=== PATIENT | male | born 1965 | race Asian ===

== ENCOUNTER 2016-11-11 14:47 | Inpatient (IN) | payer MEDICAID ==
[~2016-11-11] VITALS: Ht 180.3 cm; Wt 72.6 kg
[2016-11-11 14:55] VITALS: BP 104/64
--- NOTE | 2016-11-11 15:04 | Emergency Room Report ---
History of Present Illness General Chief Complaint: Abnormal Labs Source: Patient, Medical Record, EMS Present Illness HPI 50-year-old male history of alcohol abuse, liver cirrhosis, hypertension, seizures on Keppra, sent from [facility] for increasing confusion. Ammonia level found to be 138. Per [facility] documentation patient has been oriented x3 and able to ambulate , however he has been more confusing in conversation. Patient is currently able to have conversation but is unclear why he is here in the hospital. He admits to having a history of alcohol abuse however states that the last drink he had was 3 months ago. Patient denies any current headache blurry vision fever chills chest pain shortness of breath abdominal pain nausea vomiting or diarrhea. Allergies: Coded Allergies: No Known Allergies (Unverified , 11/11/16) Patient History Past Medical History: see triage record Past Surgical History: none Social History: Reports: smoking, alcohol use Reviewed Nursing Documentation: PMH: Agreed, PSxH: Agreed Review of Systems All Other Systems: negative except mentioned in HPI Physical Exam Vital Signs Date Time Temp Pulse Resp B/P (MAP) Pulse Ox O2 Delivery O2 Flow Rate FiO2 11/11/16 14:41 97.5 78 16 112/78 98 Room Air Sp02 EP Interpretation: reviewed, normal General Appearance: normal inspection, no apparent distress, alert, non-toxic, other - Middle-aged male awake and alert not in acute distress conversing however is confused Head: normocephalic, atraumatic Eyes: bilateral eye normal inspection, bilateral eye PERRL, bilateral eye EOMI ENT: normal ENT inspection, normal pharynx, normal voice, moist mucus membranes Neck: normal inspection, full range of motion, supple Respiratory: normal inspection, lungs clear, normal breath sounds, no respiratory distress, no retraction, no wheezing, speaking full sentences, chest symmetrical Cardiovascular #1: normal inspection, regular rate, rhythm, no edema, normal capillary refill Cardiovascular #2: 2+ radial (R), 2+ radial (L) Gastrointestinal: normal inspection, non tender, soft, non-distended, no guarding Genitourinary: no CVA tenderness Musculoskeletal: normal inspection, back normal, normal range of motion, non- tender Neurologic: normal inspection, alert, oriented x3, responsive, 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 as tested, motor strength/tone normal, sensory intact, normal gait, speech normal, other - No tremors no tongue fasciculations Psychiatric: normal inspection, judgement/insight normal, memory normal Skin: normal inspection, normal color, no rash, warm/dry, well hydrated, normal turgor Medical Decision Making Diagnostic Impression: Primary Impression: Altered mental status Additional Impressions: Atrial fibrillation Qualified Codes: I48.91 - Unspecified atrial fibrillation Alcohol abuse Hyperammonemia ER Course 50-year-old male history of alcohol abuse coming from [facility] for elevated ammonia Differential diagnosis Given patient's history if he has hyperammonemia likely secondary to hepatic encephalopathy Will rule out other electrolyte disturbances Plan Labs including ammonia level, EKG, chest x-ray, admission ER course: +afib on EKG CT head ordered: negative for acute process Pt otherwise has been stable during ED stay Disposition Patient will be admitted to med surg D/W Dr. Win Laboratory Tests Test 11/11/16 15:17 11/11/16 15:50 White Blood Count 5.8 K/UL (4.8-10.8) Red Blood Count 4.06 M/UL (4.70-6.10) L Hemoglobin 14.2 G/DL (14.2-18.0) Hematocrit 40.2 % (42.0-52.0) L Mean Corpuscular Volume 99 FL (80-99) Mean Corpuscular Hemoglobin 34.9 PG (27.0-31.0) H Mean Corpuscular Hemoglobin Concent 35.3 G/DL (32.0-36.0) Red Cell Distribution Width 11.9 % (11.6-14.8) Platelet Count 157 K/UL (150-450) Mean Platelet Volume 5.9 FL (6.5-10.1) L Neutrophils (%) (Auto) 41.3 % (45.0-75.0) L Lymphocytes (%) (Auto) 44.6 % (20.0-45.0) Monocytes (%) (Auto) 8.4 % (1.0-10.0) Eosinophils (%) (Auto) 4.9 % (0.0-3.0) H Basophils (%) (Auto) 0.9 % (0.0-2.0) Prothrombin Time 11.6 SEC (9.30-11.50) H Prothrombin Time INR 1.1 (0.9-1.1) PTT 28 SEC (23-33) Sodium Level 137 mEQ/L (135-145) Potassium Level 4.0 mEQ/L (3.4-4.9) Chloride Level 99 mEQ/L (98-107) Carbon Dioxide Level 25 mEQ/L (20-30) Anion Gap 13 (5-15) Blood Urea Nitrogen 15 mg/dL (7-23) Creatinine 0.7 mg/dL (0.7-1.2) Estimate Glomerular Filtration Rate > 60 mL/min (>60) Glucose Level 101 mg/dL (74-106) Calcium Level 8.9 mg/dL (8.6-10.2) Total Bilirubin 0.4 mg/dL (0.0-1.2) Aspartate Amino Transferase (AST) 57 U/L (5-40) H Alanine Aminotransferase (ALT) 73 U/L (3-41) H Alkaline Phosphatase 155 U/L (40-129) H Ammonia 81 umol/L (16-60) H Total Protein 8.5 g/dL (6.6-8.7) Albumin 4.0 g/dL (3.5-5.2) Globulin 4.5 g/dL Albumin/Globulin Ratio 0.8 (1.0-2.7) L Urine Color Yellow Urine Appearance Clear Urine pH 6.5 (4.5-8.0) Urine Specific [place] 1.010 (1.005-1.035) Urine Protein Negative (NEGATIVE) Urine Glucose (UA) Negative (NEGATIVE) Urine Ketones Negative (NEGATIVE) Urine Occult Blood Negative (NEGATIVE) Urine Nitrite Negative (NEGATIVE) Urine Bilirubin Negative (NEGATIVE) Urine Urobilinogen 1 MG/DL (0.0-1.0) H Urine Leukocyte Esterase 1+ (NEGATIVE) H Urine RBC 0-2 /HPF (0 - 0) H Urine WBC 0-2 /HPF (0 - 0) Urine Squamous Epithelial Cells None /LPF (NONE/OCC) Urine Bacteria Few /HPF (NONE) EKG Diagnostic Results Rate: normal Rhythm: other - afib ST Segments: no acute changes ASA given to the pt in ED: No Rhythm Strip Diag. Results EP Interpretation: yes Rate: 72 Rhythm: no PVC's, no ectopy, other - atrial fibrillation Chest X-Ray Diagnostic Results Chest X-Ray Diagnostic Results : Chest X-Ray Ordered: Yes # of Views/Limited/Complete: 1 View Indication: Other EP Interpretation: Yes Interpretation: no consolidation, no effusion, no pneumothorax, other - cardiomegaly Impression: Other - cardiomegaly Interpreting ER Provider: Electronically signed by Abhinav Mosher MD CT/MRI/US Diagnostic Results CT/MRI/US Diagnostic Results : Impression CT head: moderate atrophy no acute intracranial bleed Last Vital Signs Date Time Temp Pulse Resp B/P (MAP) Pulse Ox O2 Delivery O2 Flow Rate FiO2 11/11/16 14:41 97.5 78 16 112/78 98 Room Air Disposition: ADMITTED INPATIENT Condition: Serious Abhinav Mosher M.D. Nov 11, 2016 15:04
[2016-11-11 15:49] LABS: ALANINE AMINOTRANSFERASE 73 U/L (3-41); ALBUMIN/GLOBULIN RATIO 0.8 (1.0-2.7); ANION GAP 13 (5-15); ASPARTATE AMINO TRANSFERASE 57 U/L (5-40); CALCIUM 8.9 mg/dL (8.6-10.2); CARBON DIOXIDE 25 mEQ/L (20-30); CHLORIDE 99 mEQ/L (98-107); CREATININE 0.7 mg/dL (0.7-1.2); GLOMERULAR FILTRATION RATE > 60 mL/min (>60); HEMOLYSIS 7; SODIUM 137 mEQ/L (135-145); TOTAL PROTEIN 8.5 g/dL (6.6-8.7)
[2016-11-11 16:01] LABS: AMMONIA 81 umol/L (16-60)
[2016-11-11 16:04] LABS: APPEARANCE,URINE CLEAR; KETONES,URINE NEGATIVE (NEGATIVE); LEUKOCYTE ESTERASE ,URINE 1+ (NEGATIVE); NITRITE,URINE NEGATIVE (NEGATIVE); PH,URINE 6.5 (4.5-8.0); PROTEIN,URINE NEGATIVE (NEGATIVE); UROBILINOGEN,URINE 1 MG/DL (0.0-1.0)
[2016-11-11 16:11] LABS: INR 1.1 (0.9-1.1); PROTHROMBIN TIME 11.6 SEC (9.30-11.50)
[2016-11-11 16:12] LABS: BASOPHILS % (AUTO) 0.9 % (0.0-2.0); EOSINOPHILS % (AUTO) 4.9 % (0.0-3.0); LYMPHOCYTES % (AUTO) 44.6 % (20.0-45.0); MEAN CORPUSCULAR HEMOGLOBIN 34.9 PG (27.0-31.0); MEAN CORPUSCULAR HGB CONC 35.3 G/DL (32.0-36.0); MEAN CORPUSCULAR VOLUME 99 FL (80-99); MEAN PLATELET VOLUME 5.9 FL (6.5-10.1); MONOCYTES % (AUTO) 8.4 % (1.0-10.0); NEUTROPHILS % (AUTO) 41.3 % (45.0-75.0); PLATELET COUNT 157 K/UL (150-450); RED BLOOD COUNT 4.06 M/UL (4.70-6.10); RED CELL DISTRIBUTION WIDTH 11.9 % (11.6-14.8); WHITE BLOOD COUNT 5.8 K/UL (4.8-10.8)
[2016-11-11 16:15] LABS: BACTERIA,URINE FEW /HPF; RBC,URINE 0-2 /HPF (0 - 0); WBC,URINE 0-2 /HPF (0 - 0)
--- NOTE | 2016-11-11 16:15 | Diagnostic Imaging Report ---
Indication: Dyspnea Comparison: None A single view chest radiograph was obtained. Findings: No definite infiltrate or pulmonary vascular congestion identified. The heart is enlarged. The aorta is mildly enlarged consistent with atherosclerotic vascular disease. The bones are osteopenic. Impression: No acute disease
[2016-11-11] MEDS ORDERED: MAALOX MAXIMUM355 M1 PO (16:30)
[2016-11-11] MEDS ORDERED: ACETAMINOP160 MG/51 ORAL (16:30)
[2016-11-11] MEDS ORDERED: MILK OF MA400 MG/51 ORAL (16:30)
[2016-11-11] MEDS ORDERED: IBUPROFEN600 MG ORAL (16:30)
[2016-11-11] MEDS ORDERED: FUROSEMIDE40 MG ORAL (16:30)
[2016-11-11] MEDS ORDERED: TOPROL XL200 MG ORAL (16:30)
[2016-11-11] MEDS ORDERED: FAMOTIDINE20 MG ORAL (16:30)
[2016-11-11] MEDS ORDERED: LEVETIRACETAM500 MG ORAL (16:30)
[2016-11-11] MEDS ORDERED: BENADRYL CRE1 APPLIC TOPIC (16:30)
[2016-11-11] MEDS ORDERED: LACTULOSE20 GM/301 ORAL (16:30)
[2016-11-11] MEDS ORDERED: MAGNESIUM400 M1 PO (16:30)
[2016-11-11] MEDS ORDERED: CETIRIZINE HCL5 M1 PO (16:30)
[2016-11-11] MEDS ORDERED: DOCUSATE SODIU100 MG ORAL (16:30)
[2016-11-11] MEDS ORDERED: PHENYTOIN100 MG/4 M ORAL ×2 (16:30)
[2016-11-11] MEDS ORDERED: VALPROIC A250 MG/5 M PO (16:30)
[2016-11-11] MEDS ORDERED: LORAZEPAM1 MG ORAL (16:30)
[2016-11-11] MEDS ORDERED: SPIRONOLACTONE100 MG ORAL (16:30)
[2016-11-11] MEDS ORDERED: FLURAZEPAM HCL15 MG ORAL (16:30)
[2016-11-11] MEDS ORDERED: FERROUS SULFAT325 MG ORAL (16:30)
[2016-11-11] MEDS ORDERED: DIGOXIN0.125 MG/2 ORAL (16:30)
--- NOTE | 2016-11-11 16:48 | Diagnostic Imaging Report ---
Indication: Altered mental status Technique: Contiguous 5 mm thick transaxial imaging of the head obtained in a Siemens Sensation [address] scanner. Soft tissue and bone windows generated. Total Dose length Product (DLP): [address] Dose Index Volume (CTDIvol): 70.38, 0.15 mGy Comparison: none Findings: There is moderate to severe prominence of the ventricles, basal cisterns, and cerebral sulci consistent with atrophy. Extensive, bifrontal predominant, nonspecific, white matter hypoattenuation is noted throughout the brain consistent with chronic small vessel disease. There is no midline shift, edema, acute hemorrhage, mass effect, or abnormal extra-axial fluid collections. Bones are osteopenic. The extra osseous soft tissues are unremarkable. Impression: No acute intracranial bleed, mass effect or edema. Moderate atrophy of the brain. Extensive chronic small vessel disease involving white matter tracts. The CT scanner at [facility] is accredited by the [employer] and the scans are performed using dose optimization techniques as appropriate to a performed exam including Automatic Exposure control.
[2016-11-11 17:05] VITALS: BP 95/61
[2016-11-11 19:15] VITALS: BP 105/70
[2016-11-11 20:10] VITALS: BP 104/67
[2016-11-11] MEDS ORDERED: Milk of Magnesia 30ml Ud ORAL PRN (22:15)
[2016-11-12 04:00] VITALS: BP_SYST 109; BP_SYST 124; BP_DIAS 50; BP_DIAS 74
[2016-11-12 07:12] LABS: BASOPHILS % (AUTO) 1.8 % (0.0-2.0); EOSINOPHILS % (AUTO) 4.8 % (0.0-3.0); LYMPHOCYTES % (AUTO) 44.8 % (20.0-45.0); MEAN CORPUSCULAR HEMOGLOBIN 36.4 PG (27.0-31.0); MEAN CORPUSCULAR HGB CONC 35.8 G/DL (32.0-36.0); MEAN CORPUSCULAR VOLUME 102 FL (80-99); MEAN PLATELET VOLUME 5.1 FL (6.5-10.1); MONOCYTES % (AUTO) 7.7 % (1.0-10.0); PLATELET COUNT 134 K/UL (150-450); RED BLOOD COUNT 3.83 M/UL (4.70-6.10); RED CELL DISTRIBUTION WIDTH 11.9 % (11.6-14.8); WHITE BLOOD COUNT 4.6 K/UL (4.8-10.8)
[2016-11-12 07:22] LABS: ALANINE AMINOTRANSFERASE 57 U/L (3-41); ALBUMIN/GLOBULIN RATIO 0.7 (1.0-2.7); ANION GAP 11 (5-15); ASPARTATE AMINO TRANSFERASE 42 U/L (5-40); CALCIUM 9.2 mg/dL (8.6-10.2); CARBON DIOXIDE 27 mEQ/L (20-30); CHLORIDE 102 mEQ/L (98-107); CREATININE 0.6 mg/dL (0.7-1.2); GLOMERULAR FILTRATION RATE > 60 mL/min (>60); HEMOLYSIS 5; POTASSIUM 4.3 mEQ/L (3.4-4.9); SODIUM 140 mEQ/L (135-145); TOTAL PROTEIN 8.6 g/dL (6.6-8.7)
[2016-11-12 07:39] LABS: AMMONIA 65 umol/L (16-60)
[2016-11-12 08:25] VITALS: BP 114/90
[2016-11-12] MEDS ORDERED: Digoxin 0.125mg tab ORAL SCH (09:00)
[2016-11-12] MEDS: Heparin 5000 units/ml inj SUBQ SCH ×2 (09:00→21:00)
[2016-11-12] MEDS: Spironolactone 50mg tab ORAL SCH (09:43)
[2016-11-12] MEDS: Phenytoin 100mg cap ORAL SCH ×2 (09:44→20:47)
[2016-11-12] MEDS: Magnesium Oxide 400mg tab ORAL SCH ×2 (09:45→18:17)
[2016-11-12] MEDS: Metoprolol 25mg tab ORAL SCH (09:46)
[2016-11-12] MEDS: Docusate 100mg cap ORAL SCH ×2 (09:46→18:17)
--- NOTE | 2016-11-12 11:12 | History & Physical ---
History and Physical History & Physicial seen and examind. Full Dictation completed Christiano Win MD Nov 12, 2016 11:12
--- NOTE | 2016-11-12 11:15 | General Progress Note ---
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 2- Afib, rate controlled, supra therapeutic Dig 3- Sz d.o: Supra therapeutic Dilatin level 4- Multiple falls Plan: echo cardiology service consulted will check Dilantin and Dig levels Subjective ROS Limited/Unobtainable: No Constitutional: Reports: no symptoms HEENT: Reports: no symptoms Respiratory: Reports: no symptoms Gastrointestinal/Abdominal: Reports: no symptoms Allergies: Coded Allergies: No Known Allergies (Unverified , 11/11/16) Objective Last 24 Hour Vital Signs Date Time Temp Pulse Resp B/P (MAP) Pulse Ox O2 Delivery O2 Flow Rate FiO2 11/12/16 09:46 73 114/90 11/12/16 08:25 98.2 73 18 114/90 98 Room Air 11/12/16 04:00 97.3 69 18 124/74 97 Room Air 11/12/16 04:00 97.3 67 18 109/50 100 Room Air 11/11/16 20:10 97.3 63 18 104/67 99 Room Air 11/11/16 20:05 97.5 55 17 105/70 98 Room Air 11/11/16 19:15 55 17 105/70 98 Room Air 11/11/16 17:05 97.5 66 16 95/61 100 Room Air 11/11/16 14:55 97.5 75 20 104/64 97 Room Air 11/11/16 14:41 97.5 78 16 112/78 98 Room Air Laboratory Tests 11/11/16 15:17: White Blood Count 5.8, Red Blood Count 4.06L, Hemoglobin 14.2, Hematocrit 40.2L , Mean Corpuscular Volume 99, Mean Corpuscular Hemoglobin 34.9H, Mean Corpuscular Hemoglobin Concent 35.3, Red Cell Distribution Width 11.9, Platelet Count 157, Mean Platelet Volume 5.9L, Neutrophils (%) (Auto) 41.3L, Lymphocytes (%) (Auto) 44.6, Monocytes (%) (Auto) 8.4, Eosinophils (%) (Auto) 4.9H, Basophils (%) (Auto) 0.9, Prothrombin Time 11.6H, Prothromb Time International Ratio 1.1, Activated Partial Thromboplast Time 28, Sodium Level 137, Potassium Level 4.0, Chloride Level 99, Carbon Dioxide Level 25, Anion Gap 13, Blood Urea Nitrogen 15, Creatinine 0.7, Estimat Glomerular Filtration Rate > 60, Glucose Level 101, Calcium Level 8.9, Total Bilirubin 0.4, Aspartate Amino Transf (AST/ SGOT) 57H, Alanine Aminotransferase (ALT/SGPT) 73H, Alkaline Phosphatase 155H, Ammonia 81H, Total Protein 8.5, Albumin 4.0, Globulin 4.5, Albumin/Globulin Ratio 0.8L 11/11/16 15:50: Urine Color Yellow, Urine Appearance Clear, Urine pH 6.5, Urine Specific [place] 1.010, Urine Protein Negative, Urine Glucose (UA) Negative, Urine Ketones Negative, Urine Occult Blood Negative, Urine Nitrite Negative, Urine Bilirubin Negative, Urine Urobilinogen 1H, Urine Leukocyte Esterase 1+H, Urine RBC 0-2H, Urine WBC 0-2, Urine Squamous Epithelial Cells None, Urine Bacteria Few 11/12/16 06:25: White Blood Count 4.6L, Red Blood Count 3.83L, Hemoglobin 13.9L, Hematocrit 39.0L, Mean Corpuscular Volume 102H, Mean Corpuscular Hemoglobin 36.4H, Mean Corpuscular Hemoglobin Concent 35.8, Red Cell Distribution Width 11.9, Platelet Count 134L, Mean Platelet Volume 5.1L, Neutrophils (%) (Auto) 41.0L, Lymphocytes (%) (Auto) 44.8, Monocytes (%) (Auto) 7.7, Eosinophils (%) (Auto) 4.8H, Basophils (%) (Auto) 1.8, Sodium Level 140, Potassium Level 4.3, Chloride Level 102, Carbon Dioxide Level 27, Anion Gap 11, Blood Urea Nitrogen 12, Creatinine 0.6L, Estimat Glomerular Filtration Rate > 60, Glucose Level 97, Calcium Level 9.2, Total Bilirubin 0.7, Aspartate Amino Transf (AST/SGOT) 42H, Alanine Aminotransferase (ALT/SGPT) 57H, Alkaline Phosphatase 158H, Ammonia 65H , Total Protein 8.6, Albumin 3.6, Globulin 5.0, Albumin/Globulin Ratio 0.7L, Digoxin Level [Pending] Height (Feet): 5 Height (Inches): 11.00 Weight (Pounds): 160 General Appearance: no apparent distress EENT: PERRL/EOMI Neck: supple Cardiovascular: normal rate Respiratory/Chest: lungs clear Abdomen: soft Extremities: non-tender 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
[2016-11-12 12:25] VITALS: BP 107/71
--- NOTE | 2016-11-12 15:46 | Consultation ---
Consult Note Consult Note NEUROLOGY CONSULTATION: Full note dictated #[id number] 50 y/o, RH, GIANNI with PH of alcoholism, alcoholic liver disease, prior episodes of hepatic encephalopathy, a questionable seizure disorder which the patient denies, possible significant head trauma, who was hospitalized for AMS. ON EXAM: Oriented to self and [place] only. M 3/3-0, 0/3 -1 & 3 Unable to remember presidents, do math , do VS problems. Severe frontal systems dysfunction. Trace right VII central Mild R>L IP weakness. Globally diminished reflexes Wide based stance and gait. IMPRESSION: 1. Significant cognitive dysfunction due to underlying possible TBI, hepatic dysfunction. 2. Unknown type of seizure disorder treated with polypharmacy. 3. His hyperammonemia could be worse due to the Depakene. REC: 1. Rx of hepatic encepahlopathy. 2. EEG 3. Try to get better history of seizure type. 4. Re check Dilantin and VA level. Monica Farr M.D., M.S.P.H. MONICA FARR Nov 12, 2016 15:46
[2016-11-12 16:00] VITALS: BP 107/72
[2016-11-12 16:43] LABS: THYROID STIMULATING HORMONE 1.97 uIU/mL (0.300-4.500)
--- NOTE | 2016-11-12 17:36 | Cardiology Progress Note ---
Assessment/Plan Assessment/Plan The patient is seen and examined, full consult note will be dictated. Objective Last 24 Hour Vital Signs Date Time Temp Pulse Resp B/P (MAP) Pulse Ox O2 Delivery O2 Flow Rate FiO2 11/12/16 13:38 67 11/12/16 12:25 97.6 67 20 107/71 99 Room Air 11/12/16 09:46 73 114/90 11/12/16 08:25 98.2 73 18 114/90 98 Room Air 11/12/16 04:00 97.3 69 18 124/74 97 Room Air 11/12/16 04:00 97.3 67 18 109/50 100 Room Air 11/11/16 20:10 97.3 63 18 104/67 99 Room Air 11/11/16 20:05 97.5 55 17 105/70 98 Room Air 11/11/16 19:15 55 17 105/70 98 Room Air Laboratory Tests Test 11/12/16 06:25 11/12/16 16:32 White Blood Count 4.6 K/UL (4.8-10.8) L Red Blood Count 3.83 M/UL (4.70-6.10) L Hemoglobin 13.9 G/DL (14.2-18.0) L Hematocrit 39.0 % (42.0-52.0) L Mean Corpuscular Volume 102 FL (80-99) H Mean Corpuscular Hemoglobin 36.4 PG (27.0-31.0) H Mean Corpuscular Hemoglobin Concent 35.8 G/DL (32.0-36.0) Red Cell Distribution Width 11.9 % (11.6-14.8) Platelet Count 134 K/UL (150-450) L Mean Platelet Volume 5.1 FL (6.5-10.1) L Neutrophils (%) (Auto) 41.0 % (45.0-75.0) L Lymphocytes (%) (Auto) 44.8 % (20.0-45.0) Monocytes (%) (Auto) 7.7 % (1.0-10.0) Eosinophils (%) (Auto) 4.8 % (0.0-3.0) H Basophils (%) (Auto) 1.8 % (0.0-2.0) Erythrocyte Sedimentation Rate 82 MM/HR (0-15) H Sodium Level 140 mEQ/L (135-145) Potassium Level 4.3 mEQ/L (3.4-4.9) Chloride Level 102 mEQ/L (98-107) Carbon Dioxide Level 27 mEQ/L (20-30) Anion Gap 11 (5-15) Blood Urea Nitrogen 12 mg/dL (7-23) Creatinine 0.6 mg/dL (0.7-1.2) L Estimat Glomerular Filtration Rate > 60 mL/min (>60) Glucose Level 97 mg/dL (74-106) Calcium Level 9.2 mg/dL (8.6-10.2) Total Bilirubin 0.7 mg/dL (0.0-1.2) Aspartate Amino Transf (AST/SGOT) 42 U/L (5-40) H Alanine Aminotransferase (ALT/SGPT) 57 U/L (3-41) H Alkaline Phosphatase 158 U/L (40-129) H Ammonia 65 umol/L (16-60) H Total Protein 8.6 g/dL (6.6-8.7) Albumin 3.6 g/dL (3.5-5.2) Globulin 5.0 g/dL Albumin/Globulin Ratio 0.7 (1.0-2.7) L Vitamin B12 Level 730 pg/mL (211-946) Thyroid Stimulating Hormone (TSH) 1.970 uIU/mL (0.300-4.500) Digoxin Level 0.5 ng/mL (0.5-2.0) Phenytoin (Dilantin) Level 9.4 ug/mL (10-20) L Vitamin D 25-Hydroxy Pending 25-Hydroxy Vitamin D2 Pending 25-Hydroxy Vitamin D3 Pending Folate Pending Rapid Plasma Reagin Pending LOYDA TRISTAN Nov 12, 2016 17:36
[2016-11-12 20:00] VITALS: BP 118/65
--- NOTE | 2016-11-13 02:30 | History and Physical Report ---
DATE OF ADMISSION: 11/11/2016 SOURCE OF INFORMATION: Patient and EMR. HISTORY OF PRESENT ILLNESS: The patient is a 50-year-old male with a prior history of an alcoholic encephalopathy, has reported to have a change in his mental status. At least, two episodes of fall and trip at the intermediate. At the time of evaluation, the patient denies any chest pain or shortness of breath. He is not aware of the reason for the transfer. The patient apparently appears comfortable. REVIEW OF SYSTEMS: All 12 elements of review of systems reviewed with the patient. Pertinent positives and negatives detailed as above. PAST MEDICAL HISTORY: Seizure disorder, alcoholic encephalopathy, heart failure, hyponatremia, liver failure, hypertension, psychiatric disorder, and alcohol abuse. PAST SURGICAL HISTORY: Denies. MEDICATIONS: Outpatient medication including but not limited to digoxin, Lasix, lactulose, Keppra, phenytoin, valproic acid, and spironolactone. SOCIAL HISTORY: Positive for alcohol abuse, quantification limited. Positive for remote history of illicit drug abuse (THC). FAMILY HISTORY: Reviewed and noncontributory. PHYSICAL EXAMINATION: VITAL SIGNS: Blood pressure 110/80, temperature 98.2, pulse oximetry 98% on room air, respiratory rate 18, pulse rate 55 - 65. HEAD AND NECK: Head is atraumatic and normocephalic. CHEST: Clear to auscultation. HEART: S1 and S2. Regular rate and rhythm. ABDOMEN: Soft. No organomegaly. MUSCULOSKELETAL: No gross focal motor deficit. NEUROLOGY: The patient is awake, alert and oriented x3. Neurology, the patient decrease in the cognition. LABORATORY DATA: Labs dated 11/11/2016 shows WBC 5.8, hemoglobin 14.2, and platelets 157,000. Sodium 137, potassium 4, BUN 15, creatinine 0.7. AST 57, ALT 73. Ammonia 81. ASSESSMENT: 1. 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 2. Atrial fibrillation with uncontrolled level of digoxin. 3. Controlled rate. 4. Seizure disorder, supratherapeutic levels of Dilantin. 5. Psychiatric disorder. 6. History of the cirrhosis-history. 7. Gastrointestinal and deep vein thrombosis prophylaxis. PLAN OF CARE: We will resume the Dilantin and valproic acid. We will obtain the serum Dilantin level. CT scan of the brain is reviewed and normal. Cardiology, Dr. Fisher has been notified and consulted. Christiano Win M.D. DR: RICHARD JOB#: [id number] CC:
--- NOTE | 2016-11-13 03:30 | Consultation ---
DATE OF CONSULTATION: 11/12/2016 NEUROLOGY CONSULTATION CONSULTING PHYSICIAN: Vargas Farr M.D. REQUESTING PHYSICIAN: Christiano Win M.D. HISTORY: Mr. Niraj Concepcion is a 50-year-old, right-handed, [place] gentleman, with a past history of alcoholism, alcoholic liver disease, prior episodes of hepatic encephalopathy, a questionable seizure disorder, which the patient denies, and possible significant head trauma, who was hospitalized for an alteration in his mental state noted in his m[facility]. The patient apparently lives in a mcc, where he was noted to have alteration in his mental state. As a result of that, he was brought into the [facility] Emergency Room and has since been admitted. The patient himself is completely oblivious of why he is here. He is also completely oblivious of whether he has a seizure disorder or not. He denies any weakness on one side or the other, numbness on one side or the other, problems with speech, problems with language, problems with vision, or any other problems at this point in time. PAST MEDICAL HISTORY: Significant for alcoholism, alcoholic liver disease, hepatic encephalopathy, seizure disorder, and head trauma. FAMILY HISTORY: He says that his mother has some eye problems. His father of old age. PERSONAL HISTORY: Home: He lives in a mcc. 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 Habits: He says that he smokes approximately one pack of cigarettes per day. He drinks as much alcohol as he can. He can drink up to [id number]-day of beer, but says that recently he has not been drinking. He denies the use of any illicit drugs. PRESENT MEDICATIONS: Include Dilantin 400 mg in the morning and 300 mg at bedtime, Depakene 250 mg three times a day, Keppra 1 g three times a day, digoxin DSS, Zantac, ferrous sulfate, magnesium oxide, metoprolol, Aldactone, heparin for DVT prophylaxis, Dulcolax, milk of magnesia, and Tylenol. PHYSICAL EXAMINATION: GENERAL: He is a well-developed, well-nourished, volatile [place]ic gentleman, sitting up at the edge of his bed, quite distressed due to being in the hospital, and wearing a shirt that he cannot recognize. VITAL SIGNS: Pulse 67 per minute, blood pressure 107/71 mmHg, respirations 20 per minute, and temperature 97.6 degrees Fahrenheit. HEAD: Normocephalic with old scars. EENT: Examination benign. NECK: No neck rigidity was observed. NEUROLOGICAL EXAMINATION: MENTAL STATUS EXAMINATION: He was alert and awake. He was oriented to self and October. He did not know the date or the year. He also did not know where he was located. He was able to recall 3/3 words immediately, but could not remember any of them in 1 minute and 3 minutes even on the third trial. He was unable to tell me who the present President was and who prior presidents were. His mathematical skills were impaired. His visuospatial function was also impaired. Frontal System Tasks: He was unable to perform Luria's hand sequences, reciprocal programs, and alternating programs. SPEECH: His speech was pressured at times and normal at others. He had no dysarthria. LANGUAGE: He had an anomia for low and mid frequency words. CRANIAL NERVE EXAMINATION: II: The visual reyna were intact on confrontation testing. III, IV & : The external ocular movements were full and the pupils 3 mm in diameter, equal, round, regular, and reactive to light. V: He had normal facial sensations and the temporales, masseters, and pterygoids functioned normally. VII: He had a trace right VII central facial paresis. VIII: He was able to hear well and had no nystagmus. IX: The palate moved symmetrically on phonation. X: He had no hoarseness of voice. XI: The sternocleidomastoids and trapezii functioned normally. XII: The tongue was in midline without any fasciculations or atrophy. MOTOR SYSTEM: The tone was increased in both lower extremities with a mild degree of spasticity. Examination of muscle mass revealed no focal wasting. Examination of power revealed G 5/5 power except for G 4+/5 power in the iliopsoas muscles bilaterally with the right side being slightly weaker than the left. SENSORY EXAMINATION: He had intact sensations to pinprick, light touch, and graphesthesia. COORDINATION: He performed well on [id number] testing. He was quite apractic with [id number] testing. REFLEXES: Trace+ and bilaterally symmetrical at the biceps, triceps, brachioradialis, and knees. 0 at both ankles. The plantar responses were flexor bilaterally. STANCE: He had a wide-based stance GAIT: He had a wide-based and slightly unsteady gait. DIAGNOSTIC IMPRESSION: 1. Mr. Niraj Concepcion is a 50-year-old, right-handed, [place] gentleman, with a past history of alcoholism, alcoholic liver disease, prior episodes of hepatic encephalopathy, questionable seizure disorder, and significant head trauma, the details of which are unavailable to us, who was hospitalized for an alteration in his mental state that was noted at his m[facility]. 2. On neurological examination, at this time, he does demonstrate problems with orientation, recent and remote memory, visuospatial function, higher cognitive function, and language. He also demonstrates severe frontal systems dysfunction, a trace right VII central facial paresis, right greater than left lower extremity proximal weakness, globally diminished reflexes, a wide-based stance, and a wide-based unsteady gait. 3. The CT scan of the brain without contrast reveals significant frontotemporal encephalomalacia involving the left side more than the right with significant dilatation of the left temporal horn of the lateral ventricle compared to the right. In addition, he also has underlying global deep white matter and cortical atrophy. 4. Laboratory data revealed that he is mildly anemic with a hemoglobin of 13.9. His platelet count is low at 134,000. His liver function tests are abnormal with elevated AST, ALT, alkaline phosphatase, and anomia. His urinalysis is minimally abnormal with 1+ leukocyte esterase, 0 to 2 red blood cells, and 0 to 2 white blood cells per high-power field. His Dilantin level is at 9.4. 5. The patient's history, neurological examination, imaging studies, and laboratory data are most compatible with significant cognitive dysfunction due to underlying possible traumatic brain injury with a superadded hepatic encephalopathy. 6. The type of seizure disorder that the patient suffers from is unknown to us at this point in time, however, he is being treated with polypharmacy, the exact rationale for which is unknown to us. 7. The patient is on Depakene, which could be making his hyperammonemia worse. RECOMMENDATIONS: 1. Agree with management thus far. 2. The patient's hepatic encephalopathy should be treated appropriately with lactulose and rifaximin. 3. An EEG will be ordered to evaluate the patient for the degree and type of cerebral dysfunction. 4. Attempts should be made to try and get a better history of the patient's seizure type. 5. His Dilantin level and valproic acid level will be rechecked. If the valproic acid levels are low therapeutic then it would be prudent to stop the Depakene, which could be contributing to the patient's hyperammonemia. 6. Depending on how the patient fares over the next day or so, further recommendations will be given. Thank you for entrusting me with the care of Mr. Concepcion. I shall follow him with you. Vargas Frar M.D., M.S.P.H. DR: KIRSTIN JOB#: [id number] MTDD
[2016-11-13 04:00] VITALS: BP 122/79
[2016-11-13 07:49] LABS: BASOPHILS % (AUTO) 0.8 % (0.0-2.0); EOSINOPHILS % (AUTO) 4.4 % (0.0-3.0); LYMPHOCYTES % (AUTO) 44.1 % (20.0-45.0); MEAN CORPUSCULAR HEMOGLOBIN 36.6 PG (27.0-31.0); MEAN CORPUSCULAR HGB CONC 35.9 G/DL (32.0-36.0); MEAN CORPUSCULAR VOLUME 102 FL (80-99); MEAN PLATELET VOLUME 5.5 FL (6.5-10.1); MONOCYTES % (AUTO) 8.2 % (1.0-10.0); NEUTROPHILS % (AUTO) 42.5 % (45.0-75.0); PLATELET COUNT 129 K/UL (150-450); RED BLOOD COUNT 3.79 M/UL (4.70-6.10); WHITE BLOOD COUNT 4.4 K/UL (4.8-10.8)
[2016-11-13] MEDS: Phenytoin 100mg cap ORAL SCH ×2 (07:53→21:07)
[2016-11-13] MEDS: Magnesium Oxide 400mg tab ORAL SCH ×2 (07:54→17:46)
[2016-11-13] MEDS: Docusate 100mg cap ORAL SCH ×2 (07:54→17:46)
[2016-11-13] MEDS: Metoprolol 25mg tab ORAL SCH (07:56)
[2016-11-13] MEDS: Heparin 5000 units/ml inj SUBQ SCH ×2 (07:57→21:00)
[2016-11-13] MEDS: Spironolactone 50mg tab ORAL SCH (07:57)
[2016-11-13 08:00] VITALS: BP 110/76
[2016-11-13 09:10] LABS: ALANINE AMINOTRANSFERASE 98 U/L (3-41); ALBUMIN/GLOBULIN RATIO 0.8 (1.0-2.7); ANION GAP 13 (5-15); ASPARTATE AMINO TRANSFERASE 81 U/L (5-40); CALCIUM 9.3 mg/dL (8.6-10.2); CARBON DIOXIDE 27 mEQ/L (20-30); CHLORIDE 96 mEQ/L (98-107); CREATININE 0.7 mg/dL (0.7-1.2); GLOMERULAR FILTRATION RATE > 60 mL/min (>60); HEMOLYSIS 3; POTASSIUM 4.3 mEQ/L (3.4-4.9); SODIUM 136 mEQ/L (135-145); TOTAL PROTEIN 8.5 g/dL (6.6-8.7)
--- NOTE | 2016-11-13 09:30 | Consultation ---
DATE OF CONSULTATION: 11/12/2016 CARDIOLOGY CONSULTATION REFERRING PHYSICIAN: Christiano Win M.D. REASON FOR CONSULTATION: Management of atrial fibrillation. HISTORY OF PRESENT ILLNESS: The patient is a very unfortunate 50-year-old gentleman, who is transferred from nursing facility to this hospital for increased confusion, ammonia level was 138. 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 On arrival to the emergency department, the patient had 12-lead electrocardiogram, which showed atrial fibrillation with controlled ventricular response. Apparently, the patient has been on digoxin as well as metoprolol for rate control. He currently denies any chest pain or shortness of breath. PAST MEDICAL HISTORY: Liver cirrhosis, history of hypertension, history of seizures, and history of atrial fibrillation. PAST SURGICAL HISTORY: None. MEDICATIONS: Acetaminophen 650 mg q.4 h. p.r.n. pain, cetirizine 5 mg p.o. daily, digoxin 0.125 mg p.o. daily, Benadryl one application topically on a daily basis, Colace 100 mg twice daily, famotidine 20 mg twice daily, ferrous sulfate 325 mg twice daily, flurazepam 15 mg p.o. at bedtime, furosemide 40 mg p.o. twice daily, ibuprofen 600 mg four times daily, lactulose 10 mL t.i.d., Keppra 1000 mg twice daily, Lorazepam 1 mg q.6 h., Maalox 355 mL p.o. q.4 h., magnesium hydroxide 30 mL p.o. at bedtime, magnesium is 400 mg twice daily, metoprolol 50 mg daily, phenytoin 400 mg daily and 300 mg at bedtime, spironolactone 50 mg p.o. daily, and valproic sodium is 500 mg three times daily. ALLERGIES: No known drug allergies. SOCIAL HISTORY: History of tobacco and alcohol. Denies any illicit drug use. REVIEW OF SYSTEMS: A 12-system review done essentially negative except what I mentioned in the history of present illness. PHYSICAL EXAMINATION: GENERAL: The patient is a 50-year-old gentleman, awake, appears to be somewhat confused, not answering appropriately to my questions. VITAL SIGNS: Blood pressure at time of arrival to the hospital was 112/78, respirations 16, pulse of 78, temperature 97.5 degrees Fahrenheit, and O2 saturation 98% on room air. HEENT: Atraumatic and normocephalic. Anicteric. Pupils are equal, round, and reactive to light and accommodation. Conjunctival pallor. NECK: JVP less than 5 centimeter. No carotid bruit. Carotid upstrokes 2+ bilaterally. LUNGS: Clear to auscultation bilaterally. CARDIOVASCULAR: Normal S1 and S2. Irregularly irregular rhythm. PMI is at fourth intercostal space in the midclavicular line. ABDOMEN: Soft, nontender, and nondistended. No hepatosplenomegaly. Positive bowel sounds. EXTREMITIES: No evidence of edema, clubbing, or cyanosis. LABORATORY AND DIAGNOSTIC DATA: A 2D echocardiography showed normal left ventricular systolic function. Normal LV wall motion. LVEF 55%. Mild LVH, severe left atrial enlargement, mild right ventricular and right atrial enlargement, mild tricuspid regurgitation with left ventricular systolic pressure of 37 millimeter of mercury consistent with mild pulmonary hypertension and trace pulmonary regurgitation. ASSESSMENT AND PLAN: The patient is a very pleasant 50-year-old gentleman, seen in Cardiology consultation at the request of Dr. Win. 1. Most likely permanent atrial fibrillation on atrioventricular jeromy agents, digoxin and metoprolol. We will continue both medication as the ventricular response is well controlled. The patient does not require anticoagulation treatment at this point in view of CHADS II VASC scoring of zero. 2. 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 I would like to thank, Dr. Win, for allowing me to participate in the care of this patient. Otf Fisher M.D. DR: LINK JOB#: [id number] CC:
[2016-11-13 12:00] VITALS: BP 118/75
--- NOTE | 2016-11-13 14:59 | Internal Med Progress Note ---
Subjective Date of Service: Nov 13, 2016 Physician Name Ryan Rasmussen Attending Physician Christiano Win MD Current Medications Medications (Trade) Dose Ordered Sig/Lyndsey Route PRN Reason Start Time Stop Time Status Last Admin Dose Admin Acetaminophen (Tylenol) 650 mg Q4H PRN ORAL Mild Pain/Temp > 100.5 11/11/16 22:15 12/11/16 22:14 Bisacodyl (Dulcolax) 10 mg DAILYPRN PRN RECTAL Constipation 11/11/16 22:15 12/11/16 22:14 Digoxin (Lanoxin) 0.25 mg 1300 ORAL 11/12/16 13:00 12/12/16 12:59 11/12/16 13:38 Docusate Sodium (Colace) 100 mg TWICE A DAY ORAL 11/12/16 09:00 12/12/16 08:59 11/13/16 07:54 Ferrous Sulfate (Feosol) 325 mg TWICE A DAY ORAL 11/12/16 09:00 12/12/16 08:59 11/13/16 07:52 Heparin Sodium (Porcine) (Heparin 5000 units/ml) 5,000 units EVERY 12 HOURS SUBQ 11/12/16 09:00 12/12/16 08:59 Levetiracetam (Keppra) 1,000 mg THREE TIMES A DAY ORAL 11/12/16 09:00 12/12/16 08:59 11/13/16 12:13 Magnesium Hydroxide (Mom) 30 ml HSPRN PRN ORAL Constipation 11/11/16 22:15 12/11/16 22:14 Magnesium Oxide (Mag-Ox 400mg) 400 mg TWICE A DAY ORAL 11/12/16 09:00 12/12/16 08:59 11/13/16 07:54 Metoprolol Tartrate (Lopressor) 25 mg DAILY ORAL 11/12/16 09:00 12/12/16 08:59 11/12/16 09:46 Mupirocin (Bactroban Oint) 1 applic THREE TIMES A DAY TOPIC 11/13/16 13:00 11/18/16 12:59 Phenytoin (Dilantin) 300 mg BEDTIME ORAL 11/12/16 21:00 12/12/16 20:59 11/12/16 20:47 Phenytoin (Dilantin) 400 mg DAILY ORAL 11/12/16 09:00 12/12/16 08:59 11/13/16 07:53 Ranitidine HCl (Zantac) 150 mg BID ORAL 11/12/16 09:00 12/12/16 08:59 11/13/16 07:53 Spironolactone (Aldactone) 50 mg DAILY ORAL 11/12/16 09:00 12/12/16 08:59 11/13/16 07:57 Valproic Acid (Depakene) 250 mg THREE TIMES A DAY ORAL 11/12/16 09:00 12/12/16 08:59 11/13/16 12:13 Allergies: Coded Allergies: No Known Allergies (Unverified , 11/11/16) ROS Limited/Unobtainable: No Constitutional: Reports: no symptoms HEENT: Reports: no symptoms Cardiovascular: Reports: no symptoms Respiratory: Reports: no symptoms Gastrointestinal/Abdominal: Reports: no symptoms Genitourinary: Reports: no symptoms Neurologic/Psychiatric: Reports: no symptoms Subjective 50 YO M admitted with altered mental status. Cover for [facility] Win. Continues somewhat confused. Objective Last Vital Signs Date Time Temp Pulse Resp B/P (MAP) Pulse Ox O2 Delivery O2 Flow Rate FiO2 11/13/16 12:17 52 11/13/16 12:00 97.8 20 118/75 99 Nasal Cannula General Appearance: WD/WN, no apparent distress, alert EENT: PERRL/EOMI, normal ENT inspection, TMs normal Neck: non-tender, normal alignment, supple, normal inspection Cardiovascular: normal peripheral pulses, normal rate, regular rhythm, no gallop/murmur, no JVD Respiratory/Chest: chest wall non-tender, lungs clear, normal breath sounds, no respiratory distress, no accessory muscle use Abdomen: normal bowel sounds, non tender, soft, no organomegaly, no mass Extremities: normal range of motion Neurologic: prepared foods associate II-XII grossly normal, no motor/sensory deficits Laboratory Tests Test 11/12/16 16:32 11/13/16 05:35 Vitamin D 25-Hydroxy Pending 25-Hydroxy Vitamin D2 Pending 25-Hydroxy Vitamin D3 Pending Folate Pending Rapid Plasma Reagin Pending White Blood Count 4.4 K/UL (4.8-10.8) L Red Blood Count 3.79 M/UL (4.70-6.10) L Hemoglobin 13.9 G/DL (14.2-18.0) L Hematocrit 38.6 % (42.0-52.0) L Mean Corpuscular Volume 102 FL (80-99) H Mean Corpuscular Hemoglobin 36.6 PG (27.0-31.0) H Mean Corpuscular Hemoglobin Concent 35.9 G/DL (32.0-36.0) Red Cell Distribution Width 12.0 % (11.6-14.8) Platelet Count 129 K/UL (150-450) L Mean Platelet Volume 5.5 FL (6.5-10.1) L Neutrophils (%) (Auto) 42.5 % (45.0-75.0) L Lymphocytes (%) (Auto) 44.1 % (20.0-45.0) Monocytes (%) (Auto) 8.2 % (1.0-10.0) Eosinophils (%) (Auto) 4.4 % (0.0-3.0) H Basophils (%) (Auto) 0.8 % (0.0-2.0) Sodium Level 136 mEQ/L (135-145) Potassium Level 4.3 mEQ/L (3.4-4.9) Chloride Level 96 mEQ/L (98-107) L Carbon Dioxide Level 27 mEQ/L (20-30) Anion Gap 13 (5-15) Blood Urea Nitrogen 18 mg/dL (7-23) Creatinine 0.7 mg/dL (0.7-1.2) Estimat Glomerular Filtration Rate > 60 mL/min (>60) Glucose Level 84 mg/dL (74-106) Calcium Level 9.3 mg/dL (8.6-10.2) Total Bilirubin 0.5 mg/dL (0.0-1.2) Aspartate Amino Transf (AST/SGOT) 81 U/L (5-40) H Alanine Aminotransferase (ALT/SGPT) 98 U/L (3-41) H Alkaline Phosphatase 150 U/L (40-129) H Total Protein 8.5 g/dL (6.6-8.7) Albumin 3.8 g/dL (3.5-5.2) Globulin 4.7 g/dL Albumin/Globulin Ratio 0.8 (1.0-2.7) L Phenytoin (Dilantin) Level 8.6 ug/mL (10-20) L Valproic Acid (Depakene) Level 27 ug/mL (50-100) L Microbiology Date/Time Source Procedure Growth Status 11/11/16 16:42 Nasal Nares MRSA Culture - Final Staphylococcus Aureus - Mrsa Complete 11/11/16 16:42 Rectum VRE Culture - Final NO VANCOMYCIN RESISTANT ENTEROCOCCUS ... Complete Intake and Output 11/13/16 11/14/16 19:00 07:00 Intake Total 480 ml Balance 480 ml Intake Oral 480 ml # Voids 2 Assessment/Plan Problem List: (1) Seizure disorder Assessment & Plan: Continue dilantin an depakote. (2) CHF (congestive heart failure) Assessment & Plan: See cardiology note. (3) Cirrhosis of liver Assessment & Plan: Due to alcohol (4) Hypertension Assessment & Plan: Continue lopressor (5) Elevated liver enzymes Assessment & Plan: H/O Alcohol cirrhosis. (6) Altered mental status Assessment & Plan: Alcohol encephalopathy vs acute CVA-see neurology note. (7) Hepatic encephalopathy (8) Atrial fibrillation Assessment & Plan: See cardiology note. Cont digoxin (9) Alcohol abuse Status: not improved RYAN RASMUSSEN Nov 13, 2016 14:59
--- NOTE | 2016-11-13 15:24 | Neurology Progress Note ---
Interim History Interim History Interim History Mr. Concepcion feels well. The mind is clear but forgetful. He has not been noted to have any seizures. He continues to be cognitively impoverished. He says he has been walking around on his own. He denies any new neurologic symptoms. Review of Systems Neuro Review of Systems Benign. Objective Physical Exam Last Vital Signs Date Time Temp Pulse Resp B/P (MAP) Pulse Ox O2 Delivery O2 Flow Rate FiO2 11/13/16 12:17 52 11/13/16 12:00 97.8 20 118/75 99 Nasal Cannula Laboratory Tests Test 11/12/16 16:32 11/13/16 05:35 Vitamin D 25-Hydroxy Pending 25-Hydroxy Vitamin D2 Pending 25-Hydroxy Vitamin D3 Pending Folate Pending Rapid Plasma Reagin Pending White Blood Count 4.4 K/UL (4.8-10.8) L Red Blood Count 3.79 M/UL (4.70-6.10) L Hemoglobin 13.9 G/DL (14.2-18.0) L Hematocrit 38.6 % (42.0-52.0) L Mean Corpuscular Volume 102 FL (80-99) H Mean Corpuscular Hemoglobin 36.6 PG (27.0-31.0) H Mean Corpuscular Hemoglobin Concent 35.9 G/DL (32.0-36.0) Red Cell Distribution Width 12.0 % (11.6-14.8) Platelet Count 129 K/UL (150-450) L Mean Platelet Volume 5.5 FL (6.5-10.1) L Neutrophils (%) (Auto) 42.5 % (45.0-75.0) L Lymphocytes (%) (Auto) 44.1 % (20.0-45.0) Monocytes (%) (Auto) 8.2 % (1.0-10.0) Eosinophils (%) (Auto) 4.4 % (0.0-3.0) H Basophils (%) (Auto) 0.8 % (0.0-2.0) Sodium Level 136 mEQ/L (135-145) Potassium Level 4.3 mEQ/L (3.4-4.9) Chloride Level 96 mEQ/L (98-107) L Carbon Dioxide Level 27 mEQ/L (20-30) Anion Gap 13 (5-15) Blood Urea Nitrogen 18 mg/dL (7-23) Creatinine 0.7 mg/dL (0.7-1.2) Estimat Glomerular Filtration Rate > 60 mL/min (>60) Glucose Level 84 mg/dL (74-106) Calcium Level 9.3 mg/dL (8.6-10.2) Total Bilirubin 0.5 mg/dL (0.0-1.2) Aspartate Amino Transf (AST/SGOT) 81 U/L (5-40) H Alanine Aminotransferase (ALT/SGPT) 98 U/L (3-41) H Alkaline Phosphatase 150 U/L (40-129) H Total Protein 8.5 g/dL (6.6-8.7) Albumin 3.8 g/dL (3.5-5.2) Globulin 4.7 g/dL Albumin/Globulin Ratio 0.8 (1.0-2.7) L Phenytoin (Dilantin) Level 8.6 ug/mL (10-20) L Valproic Acid (Depakene) Level 27 ug/mL (50-100) L Neurologic Exam Objective PHYSICAL EXAMINATION: GENERAL: He is a well-developed, well-nourished, Romansh gentleman, sitting up in a chair, in no acute distress. HEAD: Normocephalic with old scars. EENT: Examination benign. NECK: No neck rigidity was observed. NEUROLOGICAL EXAMINATION: MENTAL STATUS EXAMINATION: He was alert and awake. He was oriented to self and October. He did not know the date or the year. He also did not know where he was located. He was able to recall 3/3 words immediately, but could not remember any of them in 1 minute and 3 minutes. He was unable to tell me who the present President was and who prior presidents were. His mathematical skills were impaired. His visuospatial function was also impaired. Frontal System Tasks: He was unable to perform Luria's hand sequences, reciprocal programs, and alternating programs. SPEECH: His speech was pressured at times and normal at others. He had no dysarthria. LANGUAGE: He had an anomia for low and mid frequency words. CRANIAL NERVE EXAMINATION: II: The visual reyna were intact on confrontation testing. III, IV & : The external ocular movements were full and the pupils 3 mm in diameter, equal, round, regular, and reactive to light. V: He had normal facial sensations and the temporales, masseters, and pterygoids functioned normally. VII: He had a trace right VII central facial paresis. VIII: He was able to hear well and had no nystagmus. IX: The palate moved symmetrically on phonation. X: He had no hoarseness of voice. XI: The sternocleidomastoids and trapezii functioned normally. XII: The tongue was in midline without any fasciculations or atrophy. MOTOR SYSTEM: The tone was increased in both lower extremities with a mild degree of spasticity. Examination of muscle mass revealed no focal wasting. Examination of power revealed G 5/5 power except for G 4+/5 power in the iliopsoas muscles bilaterally with the right side being slightly weaker than the left. SENSORY EXAMINATION: He had intact sensations to pinprick, light touch, and graphesthesia. COORDINATION: He performed well on [id number] testing. He was quite apractic with [id number] testing. REFLEXES: Trace+ and bilaterally symmetrical at the biceps, triceps, brachioradialis, and knees. 0 at both ankles. The plantar responses were flexor bilaterally. STANCE: He had a wide-based stance GAIT: He had a wide-based and slightly unsteady gait. Impression/Recommendations Diagnostic Impression 1. Mr. Niraj Concepcion is a 50-year-old, right-handed, Romansh [place] gentleman , with a past history of alcoholism, alcoholic liver disease, prior episodes of hepatic encephalopathy, questionable seizure disorder, and significant head trauma, the details of which are unavailable to us, who was hospitalized for an alteration in his mental state that was noted at his group home. 2. He feels well today. He however continues to be very forgetful and is cognitively impoverished. He has not been noted to have any seizures. 3. On neurological examination, at this time, he does demonstrate problems with orientation, recent and remote memory, visuospatial function, higher cognitive function, and language. He also demonstrates severe frontal systems dysfunction, a trace right VII central facial paresis, right greater than left lower extremity proximal weakness, globally diminished reflexes, a wide-based stance, and a wide-based unsteady gait. 4. The CT scan of the brain without contrast revealed significant frontotemporal encephalomalacia involving the left side more than the right with significant dilatation of the left temporal horn of the lateral ventricle compared to the right. In addition, he also had underlying global deep white matter and cortical atrophy. 5. Laboratory data on my initial evaluation revealed that he was mildly anemic with a hemoglobin of 13.9. His platelet count was low at 134,000. His liver function tests were abnormal with elevated AST, ALT, alkaline phosphatase, and ammonia. His urinalysis was minimally abnormal with 1+ leukocyte esterase, 0 to 2 red blood cells, and 0 to 2 white blood cells per high-power field. His Dilantin level was at 9.4. 6. Further laboratory tests have revealed that the VA level was subtherapeutic at 27 as expected. 7. The patient's history, neurological examination, imaging studies, and laboratory data are most compatible with significant cognitive dysfunction due to underlying possible traumatic brain injury with a superadded hepatic encephalopathy. 8. The type of seizure disorder that the patient suffers from is unknown to us at this point in time, however, he is being treated with polypharmacy, the exact rationale for which is unknown to us. 9. The patient is on Depakene, which could be making his hyperammonemia worse. His VA level is subtherapeutic at 27. Recommendations 1. Continue present management. 2. The patient's hepatic encephalopathy should be treated appropriately. 3. Await EEG to evaluate the patient for the degree and type of cerebral dysfunction. 4. Attempts should be made to try and get a better history of the patient's seizure type. 5. It is relatively safe to stop the Depakene as the level is subtherapeutic and could be contributing to the patient's hyperammonemia. Monica Farr M.D., M.S.PMONICA LO Nov 13, 2016 15:24
[2016-11-13 15:46] VITALS: BP 113/67
[2016-11-13 20:00] VITALS: BP 103/66
--- NOTE | 2016-11-13 22:41 | Cardiology Progress Note ---
Assessment/Plan Assessment/Plan 1. Permanent atrial fibrillation, continue digoxin and metoprolol, no need for NOACs with CHADS2-VASC score of zero. 2. 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 Subjective Subjective No cardiac events. Objective Last 24 Hour Vital Signs Date Time Temp Pulse Resp B/P (MAP) Pulse Ox O2 Delivery O2 Flow Rate FiO2 11/13/16 20:00 97.2 61 18 103/66 95 Room Air 11/13/16 15:46 97.0 65 20 113/67 98 Room Air 11/13/16 12:17 52 11/13/16 12:00 97.8 67 20 118/75 99 Nasal Cannula 11/13/16 08:00 98.6 68 20 110/76 98 Room Air 11/13/16 04:00 97.3 56 17 122/79 97 Room Air Intake and Output 11/13/16 11/14/16 19:00 07:00 Intake Total 840 ml Output Total 300 ml Balance 540 ml Intake Oral 840 ml Output Urine Total 300 ml # Voids 2 Laboratory Tests Test 11/13/16 05:35 White Blood Count 4.4 K/UL (4.8-10.8) L Red Blood Count 3.79 M/UL (4.70-6.10) L Hemoglobin 13.9 G/DL (14.2-18.0) L Hematocrit 38.6 % (42.0-52.0) L Mean Corpuscular Volume 102 FL (80-99) H Mean Corpuscular Hemoglobin 36.6 PG (27.0-31.0) H Mean Corpuscular Hemoglobin Concent 35.9 G/DL (32.0-36.0) Red Cell Distribution Width 12.0 % (11.6-14.8) Platelet Count 129 K/UL (150-450) L Mean Platelet Volume 5.5 FL (6.5-10.1) L Neutrophils (%) (Auto) 42.5 % (45.0-75.0) L Lymphocytes (%) (Auto) 44.1 % (20.0-45.0) Monocytes (%) (Auto) 8.2 % (1.0-10.0) Eosinophils (%) (Auto) 4.4 % (0.0-3.0) H Basophils (%) (Auto) 0.8 % (0.0-2.0) Sodium Level 136 mEQ/L (135-145) Potassium Level 4.3 mEQ/L (3.4-4.9) Chloride Level 96 mEQ/L (98-107) L Carbon Dioxide Level 27 mEQ/L (20-30) Anion Gap 13 (5-15) Blood Urea Nitrogen 18 mg/dL (7-23) Creatinine 0.7 mg/dL (0.7-1.2) Estimat Glomerular Filtration Rate > 60 mL/min (>60) Glucose Level 84 mg/dL (74-106) Calcium Level 9.3 mg/dL (8.6-10.2) Total Bilirubin 0.5 mg/dL (0.0-1.2) Aspartate Amino Transf (AST/SGOT) 81 U/L (5-40) H Alanine Aminotransferase (ALT/SGPT) 98 U/L (3-41) H Alkaline Phosphatase 150 U/L (40-129) H Total Protein 8.5 g/dL (6.6-8.7) Albumin 3.8 g/dL (3.5-5.2) Globulin 4.7 g/dL Albumin/Globulin Ratio 0.8 (1.0-2.7) L Phenytoin (Dilantin) Level 8.6 ug/mL (10-20) L Valproic Acid (Depakene) Level 27 ug/mL (50-100) L Microbiology Date/Time Source Procedure Growth Status 11/11/16 16:42 Nasal Nares MRSA Culture - Final Staphylococcus Aureus - Mrsa Complete 11/11/16 16:42 Rectum VRE Culture - Final NO VANCOMYCIN RESISTANT ENTEROCOCCUS ... Complete Objective HEENT: Atraumatic and normocephalic. Anicteric. Pupils are equal, round, and reactive to light and accommodation. Conjunctival pallor. NECK: JVP less than 5 centimeter. No carotid bruit. Carotid upstrokes 2+ bilaterally. LUNGS: Clear to auscultation bilaterally. CARDIOVASCULAR: Normal S1 and S2. Irregularly irregular rhythm. PMI is at fourth intercostal space in the midclavicular line. ABDOMEN: Soft, nontender, and nondistended. No hepatosplenomegaly. Positive bowel sounds. EXTREMITIES: No evidence of edema, clubbing, or cyanosis. LOYDA TRISTAN Nov 13, 2016 22:41
[2016-11-14] VITALS: BP 102/69
[2016-11-14 04:00] VITALS: BP 118/42
[2016-11-14 08:15] VITALS: BP 117/68
[2016-11-14] MEDS: Heparin 5000 units/ml inj SUBQ SCH (09:00)
[2016-11-14] MEDS: Magnesium Oxide 400mg tab ORAL SCH ×2 (09:15→18:00)
[2016-11-14] MEDS: Phenytoin 100mg cap ORAL SCH (09:15)
[2016-11-14] MEDS: Docusate 100mg cap ORAL SCH ×2 (09:15→18:00)
[2016-11-14] MEDS: Spironolactone 50mg tab ORAL SCH (09:15)
[2016-11-14] MEDS: Metoprolol 25mg tab ORAL SCH (09:16)
--- NOTE | 2016-11-14 11:13 | General Progress Note ---
Assessment/Plan Status: stable Assessment/Plan 1. 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 2. Atrial fibrillation with uncontrolled level of digoxin. 3. Controlled rate. 4. Seizure disorder, supratherapeutic levels of Dilantin. 5. Psychiatric disorder. 6. History of the cirrhosis-history. 7. abn LFT 7. Gastrointestinal and deep vein thrombosis prophylaxis. Plan: pending EEG Dc Keppra Rising LFT Subjective ROS Limited/Unobtainable: No Constitutional: Reports: no symptoms HEENT: Reports: no symptoms Cardiovascular: Reports: no symptoms Respiratory: Reports: no symptoms Allergies: Coded Allergies: No Known Allergies (Unverified , 11/11/16) Objective Last 24 Hour Vital Signs Date Time Temp Pulse Resp B/P (MAP) Pulse Ox O2 Delivery O2 Flow Rate FiO2 11/14/16 09:16 69 117/68 11/14/16 08:15 97.6 69 20 117/68 97 Room Air 11/14/16 04:00 97.2 64 18 118/42 93 11/14/16 00:00 97.3 60 18 102/69 Room Air 11/13/16 20:00 97.2 61 18 103/66 95 Room Air 11/13/16 15:46 97.0 65 20 113/67 98 Room Air 11/13/16 12:17 52 11/13/16 12:00 97.8 67 20 118/75 99 Nasal Cannula Intake and Output 11/14/16 11/15/16 19:00 07:00 Intake Total 480 ml Balance 480 ml Intake Oral 480 ml Height (Feet): 5 Height (Inches): 11.00 Weight (Pounds): 160 General Appearance: no apparent distress EENT: PERRL/EOMI Neck: supple Cardiovascular: normal rate Respiratory/Chest: lungs clear Abdomen: soft Extremities: non-tender Neurologic: other - decreased cognition , at his base line Christiano Win MD Nov 14, 2016 11:13
--- NOTE | 2016-11-14 11:43 | Neurology Progress Note ---
Interim History Interim History Interim History Mr. Concepcion feels well. The mind continues to be clear but forgetful. He has not been noted to have any seizures. He continues to be cognitively impoverished. He says he has been walking around on his own. He denies any new neurologic symptoms. He is eager to go home. Review of Systems Neuro Review of Systems Benign. Objective Physical Exam Last Vital Signs Date Time Temp Pulse Resp B/P (MAP) Pulse Ox O2 Delivery O2 Flow Rate FiO2 11/14/16 09:16 69 117/68 11/14/16 08:15 97.6 20 97 Room Air Neurologic Exam Objective PHYSICAL EXAMINATION: GENERAL: He is a well-developed, well-nourished, Yi gentleman, sitting up in a chair, in no acute distress. HEAD: Normocephalic with old scars. EENT: Examination benign. NECK: No neck rigidity was observed. NEUROLOGICAL EXAMINATION: MENTAL STATUS EXAMINATION: He was alert and awake. He was oriented to self and October. He did not know the date or the year. He also did not know where he was located. He was able to recall 3/3 words immediately, but could not remember any of them in 1 minute and 3 minutes. He was unable to tell me who the present President was and who prior presidents were. His mathematical skills were impaired. His visuospatial function was also impaired. Frontal System Tasks: He was unable to perform Luria's hand sequences, reciprocal programs, and alternating programs. SPEECH: His speech was pressured at times and normal at others. He had no dysarthria. LANGUAGE: He had an anomia for low and mid frequency words. CRANIAL NERVE EXAMINATION: II: The visual reyna were intact on confrontation testing. III, IV & : The external ocular movements were full and the pupils 3 mm in diameter, equal, round, regular, and reactive to light. V: He had normal facial sensations and the temporales, masseters, and pterygoids functioned normally. VII: He had a trace right VII central facial paresis. VIII: He was able to hear well and had no nystagmus. IX: The palate moved symmetrically on phonation. X: He had no hoarseness of voice. XI: The sternocleidomastoids and trapezii functioned normally. XII: The tongue was in midline without any fasciculations or atrophy. MOTOR SYSTEM: The tone was increased in both lower extremities with a mild degree of spasticity. Examination of muscle mass revealed no focal wasting. Examination of power revealed G 5/5 power except for G 4++/5 power in the iliopsoas muscles bilaterally with the right side being slightly weaker than the left. SENSORY EXAMINATION: He had intact sensations to pinprick, light touch, and graphesthesia. COORDINATION: He performed well on [id number]-[id number] testing. He was quite apractic with [id number]-[id number]-[id number] testing. REFLEXES: Trace+ and bilaterally symmetrical at the biceps, triceps, brachioradialis, and knees. 0 at both ankles. The plantar responses were flexor bilaterally. STANCE: He had a wide-based stance GAIT: He had a wide-based and slightly unsteady gait. Impression/Recommendations Diagnostic Impression 1. Mr. Niraj Concepcion is a 50-year-old, right-handed, Yi [place]ij[place] gentleman , with a past history of alcoholism, alcoholic liver disease, prior episodes of hepatic encephalopathy, questionable seizure disorder, and significant head trauma, the details of which are unavailable to us, who was hospitalized for an alteration in his mental state that was noted at his snf. 2. He feels well today. He however continues to be very forgetful and is cognitively impoverished. He has not been noted to have any seizures. 3. On neurological examination, at this time, he does demonstrate problems with orientation, recent and remote memory, visuospatial function, higher cognitive function, and language. He also demonstrates severe frontal systems dysfunction, a trace right VII central facial paresis, right greater than left lower extremity proximal weakness, globally diminished reflexes, a wide-based stance, and a wide-based unsteady gait. 4. The CT scan of the brain without contrast revealed significant frontotemporal encephalomalacia involving the left side more than the right with significant dilatation of the left temporal horn of the lateral ventricle compared to the right. In addition, he also had underlying global deep white matter and cortical atrophy. 5. Laboratory data on my initial evaluation revealed that he was mildly anemic with a hemoglobin of 13.9. His platelet count was low at 134,000. His liver function tests were abnormal with elevated AST, ALT, alkaline phosphatase, and ammonia. His urinalysis was minimally abnormal with 1+ leukocyte esterase, 0 to 2 red blood cells, and 0 to 2 white blood cells per high-power field. His Dilantin level was at 9.4. 6. Further laboratory tests have revealed that the VA level was subtherapeutic at 27 as expected. 7. The patient's history, neurological examination, imaging studies, and laboratory data are most compatible with significant cognitive dysfunction due to underlying possible traumatic brain injury with a superadded hepatic encephalopathy. 8. The type of seizure disorder that the patient suffers from is unknown to us at this point in time, however, he is being treated with polypharmacy, the exact rationale for which is unknown to us. 9. The patient is on Depakene, which could be making his hyperammonemia worse. His VA level is subtherapeutic at 27. Recommendations 1. Continue present management. 2. The patient's hepatic encephalopathy should be treated appropriately. 3. Await EEG to evaluate the patient for the degree and type of cerebral dysfunction. 4. Increase activity as tolerated. Monica Farr M.D., M.S.[facility]. MONICA FARR Nov 14, 2016 11:43
[2016-11-14 12:15] VITALS: BP 106/61
[2016-11-14] MEDS ORDERED: BACTROBAN NASAL1 GM NASAL (13:22)
[2016-11-14 16:15] VITALS: BP 105/61
--- NOTE | 2016-11-14 19:13 | Cardiology Progress Note ---
Assessment/Plan Assessment/Plan 1. Permanent atrial fibrillation, continue digoxin and metoprolol, no need for NOACs with CHADS2-VASC score of zero. 2. 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 3. Seizure D/O 4. Psychiatric disorder 5. Hepatic encephalopathy. Subjective Subjective Denies chest pain or SOB. Objective Last 24 Hour Vital Signs Date Time Temp Pulse Resp B/P (MAP) Pulse Ox O2 Delivery O2 Flow Rate FiO2 11/14/16 16:15 97.6 55 19 105/61 97 Room Air 11/14/16 14:53 64 11/14/16 12:15 97.7 53 21 106/61 99 Room Air 11/14/16 09:16 69 117/68 11/14/16 08:15 97.6 69 20 117/68 97 Room Air 11/14/16 04:00 97.2 64 18 118/42 93 11/14/16 00:00 97.3 60 18 102/69 Room Air 11/13/16 20:00 97.2 61 18 103/66 95 Room Air Respiratory/Chest: rhonchi - left Intake and Output 11/14/16 11/15/16 19:00 07:00 Intake Total 960 ml Balance 960 ml Intake Oral 960 ml Laboratory Tests Test 11/14/16 05:35 Hepatitis C Antibody Pending Objective HEENT: Atraumatic and normocephalic. Anicteric. Pupils are equal, round, and reactive to light and accommodation. Conjunctival pallor. NECK: JVP less than 5 centimeter. No carotid bruit. Carotid upstrokes 2+ bilaterally. LUNGS: Clear to auscultation bilaterally. CARDIOVASCULAR: Normal S1 and S2. Irregularly irregular rhythm. PMI is at fourth intercostal space in the midclavicular line. ABDOMEN: Soft, nontender, and nondistended. No hepatosplenomegaly. Positive bowel sounds. EXTREMITIES: No evidence of edema, clubbing, or cyanosis. LOYDA TRISTAN Nov 14, 2016 19:12
--- NOTE | 2016-11-14 19:43 | Cardiology Report ---
APPROVED REPORT EKG Measurement Heart [id number] Atrial fibrillation with slow ventricular response Voltage criteria for left ventricular hypertrophy Lateral infarct, age undetermined Abnormal ECG
--- NOTE | 2016-11-15 12:14 | Cardiology Report ---
APPROVED REPORT EXAM: Two-dimensional and M-mode echocardiogram with Doppler and color Doppler. INDICATION Atrial Fibrillation M-Mode DIMENSIONS IVSd1.6 (0.7-1.1cm)Left Atrium (MM)5.4 (1.6-4.0cm) LVDd5.5 (3.5-5.6cm)Aortic Root3.3 (2.0-3.7cm) PWd1.0 (0.7-1.1cm)Aortic Cusp Exc.2.2 (1.5-2.0cm) LVDs3.1 (2.5-4.0cm) PWs1.6 cm Normal left ventricular chamber size, systolic function and wall motion. Left ventricular ejection fraction estimated to be 55 %. Mild left ventricular hypertrophy. No evidence of pericardial fat or effusion. Severe left atrial enlargement. Mild right ventricular enlargement. Mild right atrial enlargement. Normal appearing aortic, mitral, puImonic and tricuspid valves. Mitral annulus and aortic root calcification. IVC dilated at 1.8 cm with physiologic collapse. A color flow and spectral Doppler study was performed and revealed: Trace aortic regurgitation. Trace mitral regurgitation. Left ventricular diastolic function could not be determined due to A-Fib. Mild tricuspid regurgitation. Tricuspid systolic velocities suggests peak right ventricular systolic pressure of 37 mmHg, consistent with mild pulmonary hypertension. Trace pulmonic regurgitation present.
--- NOTE | 2016-11-15 14:24 | Discharge Summary ---
Discharge Summary Hospital Course Date of Admission Nov 11, 2016 at 16:23 Date of Discharge Nov 14, 2016 at 18:20 Admitting Diagnosis hepatic encephalopathy HPI Niraj Concepcion is a 50 year old male who was admitted on Nov 11, 2016 at 16: 23 for Hepatic Encephalopathy Hospital Course dc summary #[id number] Discharge Medications Continued Medications: Acetaminophen* (Acetaminophen*) 160 Mg/5 Ml Liquid 650 MG ORAL Q4HR PRN for Pain Scale (6-10), ML Cetirizine Hcl (Cetirizine Hcl) 5 Mg Tab.chew 5 MG PO DAILY, TAB Digoxin* (Digoxin*) 0.125 Mg/2.5 Ml Solution 0.125 MG ORAL DAILY, ML 0 Refills Diphenhydramine HCl/Zinc Acet (Benadryl Itch Stopping Crm) 28.3 Gm Cream..g. 1 APPLIC TOPIC, APPLIC Docusate Sodium* (Docusate Sodium*) 100 Mg Capsule 100 MG ORAL TWICE A DAY, CAP Famotidine (Famotidine) 20 Mg Tablet 20 MG ORAL TWICE A DAY, #60 TAB 0 Refills Ferrous Sulfate* (Ferrous Sulfate*) 325 Mg Tablet 325 MG ORAL TWICE A DAY, #60 TAB 0 Refills Flurazepam Hcl (Flurazepam Hcl) 15 Mg Capsule 15 MG ORAL QHS, #30 CAP 0 Refills Furosemide* (Lasix*) 40 Mg Tablet 40 MG ORAL TWICE A DAY, TAB 0 Refills Ibuprofen* (Motrin*) 600 Mg Tablet 600 MG ORAL FOUR TIMES A DAY, #30 TAB 0 Refills Lactulose (Lactulose*) 20 Gm/30 Ml Solution 10 ML ORAL TID, ML 0 Refills Lorazepam* (Lorazepam*) 1 Mg Tablet 1 MG ORAL Q6HR, TAB Mag Hydrox/Al Hydrox/Simeth (Maalox Maximum Strength Susp) 355 Ml Oral.susp 355 ML PO Q4HR, ML Magnesium Hydroxide* (Milk Of Magnesia*) 400 Mg/5 Ml Oral.susp 30 ML ORAL BEDTIME, ML Magnesium Oxide (Magnesium) 400 Mg Capsule 400 MG PO BID, CAP Metoprolol Succinate (Toprol Xl) 200 Mg Tab.er.24h 50 MG ORAL DAILY, TAB Mupirocin Nasal (Bactroban Nasal) 1 Gm Oint...g. 1 APPLIC NASAL TWICE A DAY, GM Elimination of MRSA colonization: Approximately one-half of the ointment from the single-use tube should be applied into one nostril and the other half into the other nostril twice daily for 5 days Phenytoin (Phenytoin*) 100 Mg/4 Ml Oral.susp 400 MG ORAL DAILY, ML 0 Refills Spironolactone* (Spironolactone*) 100 Mg Tablet 50 MG ORAL DAILY, TAB Valproate Sodium (Valproic Acid) 250 Mg/5 Ml Solution 500 MG PO TID Discharge Condition Upon Discharge: stable Discharge Disposition Patient was discharged to SNF/Subacute Facility(03) Discharge Diagnoses: Discharge Instructions Discharge Instructions Special Instructions I have been assigned to complete a D/C Summary on this account. I was not involved in the patient management Jennifer Garcia NP (Vanchtein) Nov 15, 2016 14:24
--- NOTE | 2016-11-15 15:44 | Cardiology Report ---
APPROVED REPORT EKG Measurement Heart [id number] Atrial fibrillation Abnormal ECG
--- NOTE | 2016-11-16 07:15 | Discharge Summary 2 SIG ---
DATE OF ADMISSION: 11/11/2016 DATE OF DISCHARGE: 11/14/2016 REASON FOR ADMISSION: This is a 50-year-old male with history of alcohol encephalopathy and liver cirrhosis, presented with change in mental status. At the senior care, he sustained at least two episodes of trip and fall. The patient denied chest pain or shortness of breath. However, the patient was not aware of the reason for transfer and the patient with history of seizure and on polypharmacy for seizure control including Keppra, Dilantin, and valproic acid. In the emergency department, ammonia level was 81, AST was 51, ALT 73, and alkaline phosphatase 155. Troponin was negative. Vital signs were stable. EKG shows atrial fibrillation with controlled rate. CT of the head was negative for any acute intracranial pathology, but was consistent with extensive chronic small vessel disease. The patient has no leukocytosis. Stable hemoglobin and hematocrit. Laboratories stable. Urinalysis unremarkable. Billirubin 0.4. The patient admitted for further management. ADMITTING DIAGNOSES: 1. 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 2. Atrial fibrillation. 3. Seizure disorder. 4. Psychiatric disorder. 5. Cirrhosis. 6. Acute atrial fibrillation with rate controlled. 7. Seizure disorder. 8. Psychiatric disorder. 9. Cirrhosis secondary to alcohol abuse. HOSPITAL COURSE: The patient admitted. Since ammonia level was 81, the patient started on lactulose and rifaximin. The patient initially confused and disoriented. Neurology consult was requested. Neurologist seen and evaluated the patient. The patient was improving. His mental status was improving as well. Seizure precautions were maintained. The patient re-started on Keppra, Dilantin, and Depakote. Levels were checked and those were adjusted, however LFT were rising and Keppra was discontinued. The patient will stay only on Dilantin and Depakote. Chemical Research Technician followed the patient. Per stunt woman, atrial fibrillation is likely permanent. Continue digoxin and beta-reginald. Rate is controlled. No need for anticoagulation due to the criteria of CHADS 2 and VASC score 0. Echocardiogram was checked and revealed preserved ejection fraction of 55% and right ventricular systolic pressure of 37 consistent with mild pulmonary hypertension. Chest x-ray revealed no acute cardiopulmonary pathology. The patient was counseled on abstinence from alcohol abuse and the patient was stable for transfer to jail facility. FINAL DIAGNOSES: 1. 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 2. Atrial fibrillation, likely permanent. 3. Seizure disorder. 4. Psychiatric disorder. 5. Cirrhosis secondary to alcohol abuse. Of note, deep venous thrombosis and gastrointestinal prophylaxes provided. DISCHARGE MEDICATIONS: See medication reconciliation list. DISCHARGE INSTRUCTIONS: The patient discharged to jail facility. Follow up with medical doctor at the jail facility. Christiano Win M.D. I have been assigned to dictate discharge summary on this account and I was not involved in the patient's management. Jennifer Kangfrench hospitalkaycee N.PLester DR: Evelyne JOB#: [id number] CC:
[2016-11-17 07:53] LABS: VITAMIN D 25-OH TOTAL 23 ng/mL (.)
== END 2016-11-14 18:20 | DRG 280 ==
LOC: EDBD 14:47 → EMR 15:23 → 3E 16:23 → EDBEDREQ 16:35 → 4E 11-13 14:29
DX: K70.40 Alcoholic hepatic failure without coma (principal); K70.30 Alcoholic cirrhosis of liver without ascites; I27.2 Other secondary pulmonary hypertension; I48.2 Chronic atrial fibrillation; G40.909 Epilepsy, unspecified, not intractable, without status epilepticus; I10 Essential (primary) hypertension; I36.1 Nonrheumatic tricuspid (valve) insufficiency; F99 Mental disorder, not otherwise specified; Z91.81 History of falling; F17.200 Nicotine dependence, unspecified, uncomplicated; D64.9 Anemia, unspecified; F10.10 Alcohol abuse, uncomplicated
CPT/HCPCS: 36415; 70450; 71010; 80053; 80162; 80164; 80185; 80299; 81003; 82140; 82306; 82607; 82746; 84443; 85025; 85610; 85651; 85730; 86592; 86803; 87081; 93005; 93306; 99285

== ENCOUNTER 2017-02-13 22:47 | Emergency (ER) | payer MEDICAID ==
[~2017-02-13] VITALS: Ht 180.3 cm; Wt 77.1 kg
[~2017-02-13 22:47] MED LIST: ACETAMINOP160 MG/51 ORAL; BACTROBAN NASAL1 GM NASAL; BENADRYL CRE1 APPLIC TOPIC; CETIRIZINE HCL5 M1 PO; DIGOXIN0.125 MG/2 ORAL; DOCUSATE SODIU100 MG ORAL; FAMOTIDINE20 MG ORAL; FERROUS SULFAT325 MG ORAL; FLURAZEPAM HCL15 MG ORAL; FUROSEMIDE40 MG ORAL; IBUPROFEN600 MG ORAL; LACTULOSE20 GM/301 ORAL; LEVETIRACETAM500 MG ORAL; LORAZEPAM1 MG ORAL; MAALOX MAXIMUM355 M1 PO; MAGNESIUM400 M1 PO; MILK OF MA400 MG/51 ORAL; PHENYTOIN100 MG/4 M ORAL; SPIRONOLACTONE100 MG ORAL; TOPROL XL200 MG ORAL; VALPROIC A250 MG/5 M PO
--- NOTE | 2017-02-13 22:52 | Emergency Room Report ---
History of Present Illness General Source: Patient, EMS Present Illness HPI The patient presents after a fall. His head was on the ground. He does remember falling. His history of seizures. No offenses last seizure. He states he is able to take his medication at this time. There was no seizure activity witnessed. Denies chest pain, palpitations, nausea, vomiting or diarrhea. The patient is also on lactulose. Patient is also supposed to be on digoxin for atrial fibrillation. H/O Cirrhosis and encephalopathy in the past, on lactulose. Allergies: Coded Allergies: No Known Allergies (Unverified , 11/11/16) Patient History Past Medical History: see triage record Social History: Reports: alcohol use - in the past Social History Narrative assisted living Reviewed Nursing Documentation: PMH: Agreed, PSxH: Agreed Nursing Documentation-PMH Hx Hypertension: Yes Hx Cancer: No Hx Cerebrovascular Accident: Yes Hx Seizures: Yes Review of Systems All Other Systems: negative except mentioned in HPI Physical Exam Vital Signs Date Time Temp Pulse Resp B/P (MAP) Pulse Ox O2 Delivery O2 Flow Rate FiO2 02/13/17 22:48 97.2 71 18 106/61 98 Room Air Sp02 EP Interpretation: reviewed, normal General Appearance: well appearing, no apparent distress, GCS 15 Head: normocephalic Eyes: bilateral eye normal inspection, bilateral eye PERRL, bilateral eye EOMI ENT: moist mucus membranes - no lingual macerations -- poor dentition Neck: supple Respiratory: lungs clear, normal breath sounds Cardiovascular #1: regular rate, rhythm Cardiovascular #2: 2+ radial (R) Gastrointestinal: normal inspection, normal bowel sounds, non tender, no mass, non-distended Musculoskeletal: back normal, gait/station normal, normal range of motion, other - Depuitren's R middle finger with abrasion Neurologic: alert, oriented x3, motor strength/tone normal, DTRs symmetric, sensory intact, normal gait, speech normal, other - poor cooperation for test for asterixis Psychiatric: mood/affect normal Skin: normal inspection, warm/dry, abrasions - R middle finger (old) Medical Decision Making Diagnostic Impression: Primary Impression: Syncope Qualified Codes: R55 - Syncope and collapse Additional Impressions: Dilantin toxicity Qualified Codes: T42.0X1A - Poisoning by hydantoin derivatives, accidental ( unintentional), initial encounter Hepatic encephalopathy ER Course The patient presents after having a fall and not remembering it happened. Differential includes syncope, seizure, acute myocardial infarction, arrhythmia , encephalopathy amongst others. Emergent evaluation is undertaken with CT, EKG , chest x-ray and labs including Dilantin level and digoxin level. The patient is a higher risk with a history of atrial fibrillation, cirrhosis and encephalopathy. Treatment will be with IV hydration and also a dose of Ativan so he doesn't have another seizure here. EKG shows atrial fibrillation with rate well controlled. Chest x-ray shows chronic scarring CT shows chronic changes. Labs are significant for elevated ammonia and Dilantin levels. Dig is not detected. The patient is treated with lactulose. He shows no other arrhythmia. The patient was presented to Dr. Laura. He accepts the patient for telemetry at [facility]. Laboratory Tests Test 02/13/17 23:00 02/13/17 23:40 Urine Color Yellow Urine Appearance Clear Urine pH 7 (4.5-8.0) Urine Specific [place] 1.010 (1.005-1.035) Urine Protein Negative (NEGATIVE) Urine Glucose (UA) Negative (NEGATIVE) Urine Ketones Negative (NEGATIVE) Urine Occult Blood Negative (NEGATIVE) Urine Nitrite Negative (NEGATIVE) Urine Bilirubin Negative (NEGATIVE) Urine Urobilinogen Normal MG/DL (0.0-1.0) Urine Leukocyte Esterase Negative (NEGATIVE) Urine Opiates Screen Negative (NEGATIVE) Urine Barbiturates Screen Negative (NEGATIVE) Phencyclidine (PCP) Screen Negative (NEGATIVE) Urine Amphetamines Screen Negative (NEGATIVE) Urine Benzodiazepines Screen Negative (NEGATIVE) Urine Cocaine Screen Negative (NEGATIVE) Urine Marijuana (THC) Screen Negative (NEGATIVE) White Blood Count 6.7 K/UL (4.8-10.8) Red Blood Count 4.68 M/UL (4.70-6.10) L Hemoglobin 16.6 G/DL (14.2-18.0) Hematocrit 45.9 % (42.0-52.0) Mean Corpuscular Volume 98 FL (80-99) Mean Corpuscular Hemoglobin 35.4 PG (27.0-31.0) H Mean Corpuscular Hemoglobin Concent 36.1 G/DL (32.0-36.0) H Red Cell Distribution Width 10.3 % (11.6-14.8) L Platelet Count 117 K/UL (150-450) L Mean Platelet Volume 6.8 FL (6.5-10.1) Neutrophils (%) (Auto) 53.6 % (45.0-75.0) Lymphocytes (%) (Auto) 35.7 % (20.0-45.0) Monocytes (%) (Auto) 7.4 % (1.0-10.0) Eosinophils (%) (Auto) 2.4 % (0.0-3.0) Basophils (%) (Auto) 1.0 % (0.0-2.0) Sodium Level 135 MMOL/L (136-145) L Potassium Level 3.9 MMOL/L (3.5-5.1) Chloride Level 100 MMOL/L (98-107) Carbon Dioxide Level 29 MMOL/L (21-32) Anion Gap 6 mmol/L (5-15) Blood Urea Nitrogen 16 mg/dL (7-18) Creatinine 0.8 MG/DL (0.55-1.30) Estimate Glomerular Filtration Rate > 60 mL/min (>60) Glucose Level 97 MG/DL (74-106) Calcium Level 9.0 MG/DL (8.5-10.1) Total Bilirubin 0.4 MG/DL (0.2-1.0) Aspartate Amino Transferase (AST) 30 U/L (15-37) Alanine Aminotransferase (ALT) 49 U/L (12-78) Alkaline Phosphatase 72 U/L (46-116) Ammonia 77 umol/L (11-32) H Total Creatine Kinase 43 U/L (26-308) Troponin I 0.000 ng/mL (0.000-0.056) Total Protein 8.9 G/DL (6.4-8.2) H Albumin 4.0 G/DL (3.4-5.0) Globulin 4.9 g/dL Albumin/Globulin Ratio 0.8 (1.0-2.7) L Digoxin Level < 0.3 NG/ML (0.5-2.0) L Phenytoin (Dilantin) Level 29.0 ug/mL (10-20) H EKG Diagnostic Results Rate: normal Rhythm: other - a fib/flutter ST Segments: no acute changes Rhythm Strip Diag. Results EP Interpretation: yes Rhythm: no PVC's, no ectopy, other - a fib Chest X-Ray Diagnostic Results Chest X-Ray Diagnostic Results : Chest X-Ray Ordered: Yes # of Views/Limited/Complete: 1 View Indication: Other Interpretation: no consolidation, no effusion, no pneumothorax, other - chronic changes with scarring Impression: No acute disease Electronically Signed by: Electronically signed by Abelardo Villalta MD CT/MRI/US Diagnostic Results CT/MRI/US Diagnostic Results : Imaging Test Ordered: head Impression unchanged Impression: Extensive chronic changes, as described, including bilateral frontal and left temporal encephalomalacia, presumably from old infarcts or traumatic insults Other chronic and age-related changes, as described Negative for acute intracranial bleed or mass effect Sinus disease Last Vital Signs Date Time Temp Pulse Resp B/P (MAP) Pulse Ox O2 Delivery O2 Flow Rate FiO2 02/14/17 03:38 97.5 66 13 105/65 98 Room Air Status: improved Disposition: ER [facility] Condition: Serious - stable for transfer Abelardo Villalta M.D. Feb 13, 2017 22:52
[2017-02-13] MEDS ORDERED: LORazepam Inj 2mg/ml 1ml IV ONE (23:00)
[2017-02-14 00:04] LABS: APPEARANCE,URINE CLEAR; KETONES,URINE NEGATIVE (NEGATIVE); LEUKOCYTE ESTERASE ,URINE NEGATIVE (NEGATIVE); NITRITE,URINE NEGATIVE (NEGATIVE); PH,URINE 7 (4.5-8.0); PROTEIN,URINE NEGATIVE (NEGATIVE); UROBILINOGEN,URINE NORMAL MG/DL (0.0-1.0)
[2017-02-14 00:06] LABS: EOSINOPHILS % (AUTO) 2.4 % (0.0-3.0); LYMPHOCYTES % (AUTO) 35.7 % (20.0-45.0); MEAN CORPUSCULAR HEMOGLOBIN 35.4 PG (27.0-31.0); MEAN CORPUSCULAR HGB CONC 36.1 G/DL (32.0-36.0); MEAN CORPUSCULAR VOLUME 98 FL (80-99); MEAN PLATELET VOLUME 6.8 FL (6.5-10.1); MONOCYTES % (AUTO) 7.4 % (1.0-10.0); NEUTROPHILS % (AUTO) 53.6 % (45.0-75.0); PLATELET COUNT 117 K/UL (150-450); RED BLOOD COUNT 4.68 M/UL (4.70-6.10); RED CELL DISTRIBUTION WIDTH 10.3 % (11.6-14.8); WHITE BLOOD COUNT 6.7 K/UL (4.8-10.8)
[2017-02-14 00:16] LABS: ANION GAP 6 mmol/L (5-15); CARBON DIOXIDE 29 MMOL/L (21-32); CHLORIDE 100 MMOL/L (98-107); CREATININE 0.8 MG/DL (0.55-1.30); GLOMERULAR FILTRATION RATE > 60 mL/min (>60); POTASSIUM 3.9 MMOL/L (3.5-5.1); SODIUM 135 MMOL/L (136-145)
[2017-02-14 00:21] LABS: ALANINE AMINOTRANSFERASE 49 U/L (12-78); ALBUMIN/GLOBULIN RATIO 0.8 (1.0-2.7); ASPARTATE AMINO TRANSFERASE 30 U/L (15-37); TOTAL PROTEIN 8.9 G/DL (6.4-8.2)
[2017-02-14 00:53] VITALS: BP 103/79
[2017-02-14] MEDS ORDERED: Lactulose 20gm/30ml UDC ORAL ONE (02:00)
[2017-02-14] MEDS ORDERED: Bacitracin Oint UD TOPIC ONE (02:15)
[2017-02-14 02:50] VITALS: BP 105/65
[2017-02-14 03:38] VITALS: BP 105/65
--- NOTE | 2017-02-14 10:59 | Diagnostic Imaging Report ---
Indications: Seizure Technique: Spiral acquisitions obtained through the brain. Angled axial and coronal 5 x 5 mm slices were reconstructed. Total dose length product 1004 and 67 mGycm. CTDI vol(s) 70.38 mGy. Dose reduction achieved using automated exposure control Comparison: 11/11/2016 Findings: Again demonstrated is a large area of encephalomalacia in the high left frontal lobe. This results in ex vacuo dilatation of the frontal horn of the left lateral ventricle. There is also encephalomalacia of the left temporal lobe, resulting in ex vacuo dilatation of the temporal horn of left lateral ventricle. There is bilateral inferior frontal encephalomalacia again noted. There is also generalized ventriculomegaly and enlargement of the extra-axial CSF spaces. No acute intracranial hemorrhage or edema. No mass effect or midline shift. Old lacunar infarct is seen in the left basal ganglia, unchanged. There is minimal posterior left ethmoid sinus disease and a small focal polyp or mucous retention cyst at the floor of the left maxillary sinus. There is anterior leftward nasal septal deviation. Mastoids are clear. The orbits are unremarkable. There is diastasis of the superior sagittal suture near the vertex which is unchanged Impression: Extensive chronic changes, as described, including bilateral frontal and left temporal encephalomalacia, presumably from old infarcts or traumatic insults Other chronic and age-related changes, as described Negative for acute intracranial bleed or mass effect Sinus disease This agrees with the preliminary interpretation provided overnight by [facility] teleradiology service. The CT scanner at [facility] is accredited by the [employer] and the scans are performed using protocols designed to limit radiation exposure to as low as reasonably achievable to attain images of sufficient resolution adequate for diagnostic evaluation.
--- NOTE | 2017-02-14 11:02 | Diagnostic Imaging Report ---
Indication: Chest pain Technique: One view of the chest Comparison: 11/11/2016 Findings: The lungs and pleural spaces are clear. The aorta is tortuous. Questionable old healed rib fracture deformities again noted on the right. The heart is borderline enlarged. Some scarring in the left upper lung is again demonstrated Findings are unchanged Impression: Mild cardiomegaly No acute process This agrees with the preliminary interpretation provided by the emergency room physician
--- NOTE | 2017-02-14 14:18 | Cardiology Report ---
APPROVED REPORT EKG Measurement Heart [id number] Atrial fibrillation Abnormal ECG
== END 2017-02-14 03:38 | disposition short-term general hospital (02) ==
LOC: EDBD 22:47 → EMR 22:55
DX: R55 Syncope and collapse (principal); T42.0X5A Adverse effect of hydantoin derivatives, initial encounter; Y92.9 Unspecified place or not applicable; I10 Essential (primary) hypertension; G40.909 Epilepsy, unspecified, not intractable, without status epilepticus; Z86.73 Personal history of transient ischemic attack (TIA), and cerebral infarction without residual deficits; G93.89 Other specified disorders of brain; J32.9 Chronic sinusitis, unspecified
CPT/HCPCS: 36415; 70450; 71010; 80053; 80162; 80185; 80307; 81003; 82140; 82550; 84484; 85025; 93005; 96361; 96374; 99284